=== PATIENT | female | born 1990 ===

== ENCOUNTER → 2025-03-08 11:18 | Outpatient (BNVA) | payer MEDICAID, SELFPAY | PROVIDERS: Visit Provider Nurse Practitioner Women's Health | DX: Z01.419 Encounter for gynecological examination (general) (routine) without abnormal findings (principal); Z11.3 Encounter for screening for infections with a predominantly sexual mode of transmission | CPT/HCPCS: 86592; 86705; 86706; 86709; 86803; 87340; 87806 ==

== ENCOUNTER → 2025-04-19 14:41 | Outpatient (BNVA) | payer OTHER, SELFPAY | PROVIDERS: Visit Provider Nurse Practitioner Psychiatric/Mental Health | DX: Z79.899 Other long term (current) drug therapy (principal) | CPT/HCPCS: 80053; 80061; 80307; 82306; 83036 ==